=== PATIENT | female | born 1935 | race Caucasian/White ===

== ENCOUNTER 2017-03-04 15:05 | Emergency (ER) | payer OTHER ==
[2017-03-04 15:28] VITALS: BMI 25.9
--- NOTE | 2017-03-04 16:11 | PDOC ---
History of Present Illness - General Chief Complaint: Lightheaded Stated Complaint: DIZZINESS Time Seen by Provider: 03/04/17 16:04 - History of Present Illness Initial Comments: 03/04/17 16:45 Ms. Leiva is a 81 yo female w/ pmh of DMI and HTN who presents complaining of 4- 5 day history of dizziness, black stool, and abdominal discomfort that she says is NOT pain. Family reports she very rarely comes to the doctor but is very good about taking her insulin and HTN medication.She also incidentally reports occasionally having difficulty hearing out of left or right ear but says that it comes and goes. Past History - Past Medical History Allergies/Adverse Reactions: Allergies Allergy/AdvReac Type Severity Reaction Status Date / Time No Known Allergies Allergy Verified 04/02/16 11:20 Home Medications: Ambulatory Orders Aspirin [Ecotrin] 1 tab PO DAILY 04/02/16 Calcium Carbonate/Vitamin D3 [Calcium 500 + Vit D Caplet] 1 tab PO DAILY Insulin Glargine,Hum.rec.anlog [Lantus (10mL VIAL) -] 50 unit SQ DAILY 04/02/16 Insulin Lispro Protamin/Lispro [Humalog Mix 75-25 Vial] 10 unit SQ Q12H Lisinopril [Zestril] 1 tab PO DAILY 04/02/16 Loratadine [Claritin -] 1 tab PO DAILY 04/02/16 Simvastatin 1 tab PO HS 04/02/16 Acetaminophen [Extra Strength Non-Aspirin] 1,000 mg PO Q6H PRN 03/04/17 Cyclobenzaprine HCl 5 mg PO DAILY 03/04/17 Diclofenac Sodium [Voltaren] 100 gm TP DAILY 03/04/17 Menthol [Biofreeze] 118 ml TP DAILY PRN 03/04/17 Nitrofurantoin Macrocrystal [Nitrofurantoin] 100 mg PO BID 7 Days #14 capsule Olopatadine HCl [Patanol] 5 ml OP DAILY 03/04/17 [place]-3 Acid Ethyl Esters [Lovaza] 1 gm PO DAILY 03/04/17 Omeprazole/Sodium Bicarbonate [Omeprazole-Bicarb 20-1,100 Cap] 1 each PO DAILY 03/04/17 Sertraline HCl 25 mg PO DAILY 03/04/17 COPD: No Diabetes: Yes Disorders: Yes (GERD) HTN: Yes Psychiatric Problems: Yes (adjustment disorder, Depression,) Other medical history: vitiligo, ganuloma inguinale, HLD, goiter, Ovarian cyst - Suicide/Smoking/Psychosocial Hx Smoking History: Never smoked Hx Alcohol Use: No Drug/Substance Use Hx: No Review of Systems - Review of Systems Comments:: 03/04/17 16:51 GENERAL/CONSTITUTIONAL: No fever or chills. No weakness. HEAD, EYES, EARS, NOSE AND THROAT: No change in vision. No ear pain or discharge. No sore throat. CARDIOVASCULAR: No chest pain or shortness of breath RESPIRATORY: No cough, wheezing, or hemoptysis. GASTROINTESTINAL: +Black stool noted over same time period. No nausea, vomiting , diarrhea or constipation. GENITOURINARY: No dysuria, frequency, or change in urination. MUSCULOSKELETAL: No joint or muscle swelling or pain. No neck or back pain. SKIN: No rash NEUROLOGIC: +Patient reports feeling lightheaded/unsteady over same time period. No headache, vertigo, loss of consciousness, or change in strength/ sensation. ENDOCRINE: No increased thirst. No abnormal weight change HEMATOLOGIC/LYMPHATIC: No anemia, easy bleeding, or history of blood clots. ALLERGIC/IMMUNOLOGIC: No hives or skin allergy. *Physical Exam - Vital Signs Last Vital Signs Temp Pulse Resp BP Pulse Ox 98.7 F 83 18 137/64 100 03/04/17 15:26 03/04/17 15:26 03/04/17 15:26 03/04/17 15:26 03/04/17 15:26 - Physical Exam Comments: 03/04/17 16:52 GENERAL: Awake, alert, and fully oriented, in no acute distress HEAD: No signs of trauma, normocephalic, atraumatic EYES: PERRLA, EOMI, sclera anicteric, conjunctiva clear ENT: Auricles normal inspection, hearing grossly normal, nares patent, oropharynx clear without exudates. Moist mucosa NECK: Normal ROM, supple, no lymphadenopathy, JVD, or masses LUNGS: No distress, speaks full sentences, clear to auscultation bilaterally HEART: Regular rate and rhythm, normal S1 and S2, no murmurs, rubs or gallops, peripheral pulses normal and equal bilaterally. ABDOMEN: +Diffuse discomfort to palpation - patient denies is painful. Soft, normoactive bowel sounds. No guarding, no rebound. No masses EXTREMITIES: Normal inspection, Normal range of motion, no edema. No clubbing or cyanosis. NEUROLOGICAL: Cranial nerves II through XII grossly intact. Normal speech, normal gait, no focal sensorimotor deficits SKIN: Warm, Dry, normal turgor, no rashes or lesions noted. RECTAL: No hemmorhoids noted internal or external. Fecal material appears dark on glove. ED Treatment Course - LABORATORY CBC & Chemistry Diagram: 03/04/17 20:56 03/04/17 16:30 Medical Decision Making - Medical Decision Making 03/04/17 18:33 Ms. Leiva presents with symptoms concerning for GI bleed. Will order CT to r/o mesenteric ischemia as well as diverticulitis and proceed accordingly. *DC/Admit/Observation/Transfer Diagnosis at time of Disposition: Cystitis - Discharge Dispostion Disposition: HOME Condition at time of disposition: Improved - Prescriptions Prescriptions: Nitrofurantoin Macrocrystal [Nitrofurantoin] 100 mg PO BID 7 Days #14 capsule - Referrals Referrals: Brittney Humphreys MD [Staff Physician] - - Patient Instructions Printed Discharge Instructions: DI for Acute Cystitis Additional Instructions: We believe that you have an infection of your bladder. Please take your antibiotics and follow up with your primary care physician this week. Please follow up with the renal referral as well for the evaluation of the kidney swelling that we discussed. Please come back to the ED if you new or worsening symptoms after taking your antibiotics. Print Language: KHMER - Post Discharge Activity
[2017-03-04 16:39] LABS: BASOPHIL 1.1 % (0-2.0); EOSINOPHIL 0.9 % (0-4.5); MCH 29.8 pg (25.7-33.7); MCHC 33.6 g/dl (32.0-36.0); MEAN CELL VOLUME 88.5 fl (80-96); MEAN PLT VOLUME 10.9 fl (7.5-11.1); PLATELET COUNT 166 K/MM3 (134-434); RDW 13.9 % (11.6-15.6); WHITE BLOOD COUNT 5.6 K/mm3 (4.0-10.0)
[2017-03-04 16:45] LABS: INR 1.05 (0.82-1.09); PROTHROMBIN TIME (PATIENT) 11.9 SEC (9.98-11.88)
[2017-03-04 17:15] LABS: ALBUMIN 4.1 g/dl (3.4-5.0); ANION GAP 6 (8-16); BILIRUBIN,TOTAL 0.4 mg/dL (0.2-1.0); CALCIUM 8.8 mg/dL (8.5-10.1); CO2 29 mmol/L (21-32); CREATININE 0.8 mg/dL (0.55-1.02); GLUCOSE,RANDOM 79 mg/dL (74-106); SGOT/AST 19 U/L (15-37); SGPT/ALT 19 U/L (12-78); TOT PROT 7.8 g/dl (6.4-8.2)
[2017-03-04 17:17] LABS: ALK PHOS 66 U/L (45-117); CPK 201 IU/L (26-192); TROPONIN I < 0.02 ng/ml (0.00-0.05)
--- NOTE | 2017-03-04 17:43 | PDOC ---
Attending Attestation - Resident Resident Name: Hipolito Shaffer - ED Attending Attestation I have performed the following: I have examined & evaluated the patient, The case was reviewed & discussed with the resident, I agree w/resident's findings & plan, Exceptions are as noted
[2017-03-04] MEDS ORDERED: CEFTRIAXONE 1 GM/50 ML BAG ONE (20:54)
[2017-03-04 20:57] VITALS: BP 136/71; PULSE 78; TEMP 98.5
[2017-03-04 21:00] LABS: BASOPHIL 0.9 % (0-2.0); EOSINOPHIL 0.5 % (0-4.5); MCH 30.3 pg (25.7-33.7); MCHC 34.3 g/dl (32.0-36.0); MEAN CELL VOLUME 88.4 fl (80-96); MEAN PLT VOLUME 10.6 fl (7.5-11.1); NEUTROPHILS 72.9 % (42.8-82.8); RDW 13.9 % (11.6-15.6); WHITE BLOOD COUNT 6.6 K/mm3 (4.0-10.0)
[2017-03-04 21:07] LABS: URINE APPEARANCE CLEAR; URINE BILIRUBIN NEGATIVE (NEGATIVE); URINE BLOOD NEGATIVE (NEGATIVE); URINE COLOR COLORLESS; URINE GLUCOSE (UA) NEGATIVE (NEGATIVE); URINE KETONE NEGATIVE (NEGATIVE); URINE NITRITE NEGATIVE (NEGATIVE); URINE PROTEIN NEGATIVE (NEGATIVE); URINE UROBILINOGEN NEGATIVE mg/dL (0.2-1.0)
[2017-03-04 22:02] LABS: PLATELET COUNT 163 K/MM3 (134-434)
--- NOTE | 2017-03-04 22:35 | PDOC ---
*Physical Exam - Vital Signs Last Vital Signs Temp Pulse Resp BP Pulse Ox 98.5 F 78 17 136/71 96 03/04/17 20:56 03/04/17 20:56 03/04/17 20:56 03/04/17 20:56 03/04/17 20:56 ED Treatment Course - LABORATORY CBC & Chemistry Diagram: 03/04/17 20:56 03/04/17 16:30 - ADDITIONAL ORDERS Additional order review: Laboratory Results 03/04/17 03/04/17 03/04/17 21:00 20:40 17:55 PT with INR INR Sodium Potassium Chloride Carbon Dioxide Anion Gap BUN Creatinine Creat Clearance w eGFR POC Glucometer 95.44490 Random Glucose Lactic Acid 1.1 Calcium Total Bilirubin AST ALT Alkaline Phosphatase Creatine Kinase Creatine Kinase Index CK-MB (CK-2) Troponin I Total Protein Albumin Urine Color Colorless Urine Appearance Clear Urine pH 7.0 Ur Specific [place] 1.016 Urine Protein Negative Urine Glucose (UA) Negative Urine Ketones Negative Urine Blood Negative Urine Nitrite Negative Urine Bilirubin Negative Urine Urobilinogen Negative Stool Occult Blood Blood Type Antibody Screen 03/04/17 03/04/17 03/04/17 17:36 16:45 16:30 PT with INR INR Sodium Potassium Chloride Carbon Dioxide Anion Gap BUN Creatinine Creat Clearance w eGFR POC Glucometer 60.27965 Random Glucose Lactic Acid Calcium Total Bilirubin AST ALT Alkaline Phosphatase Creatine Kinase Creatine Kinase Index CK-MB (CK-2) Troponin I Total Protein Albumin Urine Color Urine Appearance Urine pH Ur Specific [place] Urine Protein Urine Glucose (UA) Urine Ketones Urine Blood Urine Nitrite Urine Bilirubin Urine Urobilinogen Stool Occult Blood Negative Blood Type O POSITIVE Antibody Screen Negative 03/04/17 03/04/17 16:30 16:30 PT with INR 11.90 H INR 1.05 Sodium 141 Potassium 4.4 Chloride 106 Carbon Dioxide 29 Anion Gap 6 L BUN 18 Creatinine 0.8 Creat Clearance w eGFR > 60 POC Glucometer Random Glucose 79 D Lactic Acid Calcium 8.8 Total Bilirubin 0.4 AST 19 D ALT 19 D Alkaline Phosphatase 66 Creatine Kinase 201 H Creatine Kinase Index 1.0 CK-MB (CK-2) 2.143 Troponin I < 0.02 Total Protein 7.8 Albumin 4.1 Urine Color Urine Appearance Urine pH Ur Specific [place] Urine Protein Urine Glucose (UA) Urine Ketones Urine Blood Urine Nitrite Urine Bilirubin Urine Urobilinogen Stool Occult Blood Blood Type Antibody Screen 03/04/17 03/04/17 03/04/17 20:56 20:40 17:36 RBC 3.94 MCV 88.4 MCHC 34.3 RDW 13.9 MPV 10.6 Neutrophils % 72.9 Lymphocytes % 18.2 D Monocytes % 7.5 Eosinophils % 0.5 Basophils % 0.9 POC Glucometer 95.33429 60.85511 03/04/17 16:30 RBC 3.98 MCV 88.5 MCHC 33.6 RDW 13.9 MPV 10.9 Neutrophils % 64.0 Lymphocytes % 26.0 Monocytes % 8.0 Eosinophils % 0.9 Basophils % 1.1 POC Glucometer - Medications Given in the ED: ED Medications Discontinued Medications Generic Name Dose Route Start Last Admin Trade Name Bebeto PRN Reason Stop Dose Admin Ceftriaxone Sodium 1,000 mg 03/04/17 20:52 03/04/17 21:03 Rocephin - IVPB 03/04/17 20:53 1,000 mg ONCE ONE Administration Medical Decision Making - Medical Decision Making CT showing signs of bladder inflammation possibly consistent with cystitis and some hydronephrosis. Gave 1 G ceftriaxone in ED and will send home with 7 days nitrofurantoin BID. Patient otherwise feelign well and ok with discharge. CBC WNL. 03/04/17 22:30 *DC/Admit/Observation/Transfer Diagnosis at time of Disposition: Cystitis - Discharge Dispostion Disposition: HOME Condition at time of disposition: Improved Admit: No - Prescriptions Prescriptions: Nitrofurantoin Macrocrystal [Nitrofurantoin] 100 mg PO BID 7 Days #14 capsule - Referrals Referrals: Brittney Humphreys MD [Staff Physician] - - Patient Instructions Printed Discharge Instructions: DI for Acute Cystitis Additional Instructions: We believe that you have an infection of your bladder. Please take your antibiotics and follow up with your primary care physician this week. Please follow up with the renal referral as well for the evaluation of the kidney swelling that we discussed. Please come back to the ED if you new or worsening symptoms after taking your antibiotics. - Post Discharge Activity
[2017-03-05 10:53] LABS: URINE LEUK ESTERASE Negative (NEGATIVE)
== END 2017-03-04 22:55 | disposition home or self-care (01) ==
LOC: JER 15:05
DX: N30.00 Acute cystitis without hematuria (principal); E10.9 Type 1 diabetes mellitus without complications; Z79.4 Long term (current) use of insulin; Z79.84 Long term (current) use of oral hypoglycemic drugs; I10 Essential (primary) hypertension; L80 Vitiligo; E78.5 Hyperlipidemia, unspecified; E04.9 Nontoxic goiter, unspecified; F43.20 Adjustment disorder, unspecified; F32.9 Major depressive disorder, single episode, unspecified; N83.209 Unspecified ovarian cyst, unspecified side
CPT/HCPCS: 36415; 74177-TC; 80053; 81003; 82272; 82550; 82553; 83605; 84484; 85025; 85610; 86850; 86900; 86901; 99283-25; Q9967

== ENCOUNTER → 2018-10-19 | Day surgery (SDC) | payer OTHER ==
[2018-10-19 11:47] LABS: BILIRUBIN,TOTAL 0.3 mg/dL (0.2-1); BLOOD UREA NITROGEN 23.1 mg/dL (7-18); CALCIUM 8.9 mg/dL (8.5-10.1); CREATININE 0.9 mg/dL (0.55-1.3); POTASSIUM 4.5 mmol/L (3.5-5.1); TOT PROT 7.5 g/dl (6.4-8.2)
--- NOTE | 2018-10-20 15:47 | PATH ---
Cytology Non-Gynecological Report Patient Name: YULISSA MOSELEY [facility]. Rec. #: [id number] /Age/Gender: 1935 (Age: 83) / F Account: [id number] Location: RADIOLOGY INTER Taken: 10/19/2018 Received: 10/19/2018 Reported: 10/20/2018 Physicians: Stephanie Mathews M.D. Specimen(s) Received RIGHT THYROID FNA Clinical History Right lobe nodule Final Diagnosis THYROID, RIGHT, FINE NEEDLE ASPIRATION: SATISFACTORY FOR EVALUATION B[place] CLASS II: BENIGN SMALL FOLLICULAR CELLS, COLLOID, AND MACROPHAGES PRESENT, CONSISTENT WITH A BENIGN FOLLICULAR NODULE. Electronically Signed Mars Sterling M.D. Gross Description Received are eight direct smears, four of which are air-dried and Diff-Quik stained, and four of which are alcohol fixed and Pap stained. Also received is 20 ml of bloody formalin from which one cellblock is prepared.
== END | disposition home or self-care (01) ==
LOC: JRADIR 09:24
PROVIDERS: ATTEND Internal Medicine Endocrinology, Diabetes & Metabolism
PROC: 0G9K3ZX Drainage of Thyroid Gland, Percutaneous Approach, Diagnostic (ICD-10-PCS; principal; 2018-10-19)
DX: E04.1 Nontoxic single thyroid nodule (principal)
CPT/HCPCS: 10005; 36415; 76942; 80053; 83036; 88173; 88305-TC